=== PATIENT | female | born 1985 | race Two or more races ===

== ENCOUNTER 2019-01-06 11:32 | Emergency (ER) | payer MEDICAID ==
[~2019-01-06] VITALS: Ht 157.5 cm; Wt 104.0 kg
--- NOTE | 2019-01-06 12:46 | NUR ---
WIG COMBER: PT TO ROOM FROM LOBBY
[2019-01-06] MEDS ORDERED: ONDANSETRON ODT 4 MG ONE (13:04)
--- NOTE | 2019-01-06 13:10 | NUR ---
URINE COLLECTED/ORDERED/SENT TO LAB. ODT ZOFRAN GIVEN PER PROTOCOL FOR N/V. PT ALSO WITH C/O COUGH, SORE THROAT. PT DENIES ABD PAIN. CALL LIGHT WITHIN REACH, WARM BLANKET PROVIDED.
[2019-01-06 13:24] LABS: MICROSCOPIC NOT IND
[2019-01-06 13:27] LABS: CULTURE INDICATED? NO
[2019-01-06] MEDS ORDERED: SODIUM CHLORIDE FLUSH 10ML SYR IVF ONE (13:30)
[2019-01-06] MEDS ORDERED: SODIUM CHLORIDE 0.9% 1,000ML IVBOLUS ONE (13:30)
[2019-01-06] MEDS ORDERED: ONDANSETRON ODT 4 MG PO PRN (13:30)
[2019-01-06] MEDS ORDERED: ONDANSETRON 2MG/ML, 2ML IVPush ONE (13:30)
[2019-01-06 13:38] LABS: BASOPHILS # (AUTO) 0.08 x10^3/uL (0-0.1); BASOPHILS % (AUTO) 1 % (0-1); EOSINOPHILS # (AUTO) 0.19 x10^3/uL (0-0.4); EOSINOPHILS % (AUTO) 2 % (1-7); LYMPHOCYTES # (AUTO) 1.98 x10^3/uL (1-3.4); LYMPHOCYTES % (AUTO) 19 % (22-44); MD NO; MEAN CORPUSCULAR HGB CONC 33.2 g/dL (32.4-35.8); MEAN CORPUSCULAR VOLUME 90.5 fL (80-100); MEAN PLATELET VOLUME 8.3 fL (7.4-10.4); MONOCYTES % (AUTO) 6 % (2-9); NEUTROPHILS # (AUTO) 7.76 x10^3/uL (1.8-6.8); NEUTROPHILS % (AUTO) 73 % (42-75); PLATELET COUNT 328 x10^3/uL (130-400); RED BLOOD COUNT 4.61 x10^6/uL (3.82-5.3); RED CELL DISTRIBUTION WIDTH 13.9 % (9.6-15.2)
[2019-01-06 13:51] LABS: CALCIUM 9.1 mg/dL (8.5-10.1); CHLORIDE 107 mmol/L (98-107)
[2019-01-06 14:00] LABS: ALANINE AMINOTRANSFERASE 52 U/L (12-78); ALBUMIN 3.8 g/dL (3.4-5.0); ALKALINE PHOSPHATASE 152 U/L (45-117); ANION GAP 8 mmol/L (5-15); BILIRUBIN,TOTAL 0.6 mg/dL (0.2-1.0); CREATININE 0.61 mg/dL (0.55-1.02); TOTAL PROTEIN 7.8 g/dL (6.4-8.2)
[2019-01-06 15:21] VITALS: BP 121/64
== END 2019-01-06 15:57 | disposition home or self-care (01) ==
LOC: ED 15:27
DX: B34.9 Viral infection, unspecified (principal); R11.2 Nausea with vomiting, unspecified; R19.7 Diarrhea, unspecified
CPT/HCPCS: 36415; 80053; 81003; 83690; 84703; 85025; 93005; 96361; 96374; 99284; J2405; J7030; Q0162

== ENCOUNTER 2019-02-23 17:31 | Emergency (ER) | payer MEDICAID ==
[~2019-02-23] VITALS: Ht 160 cm; Wt 105.7 kg
--- NOTE | 2019-02-23 17:45 | NUR ---
NON TOXIC APPEARING YOUNG LADY PRESENTS TO ED WITH C/O N/V WITH MULTIPLE EPISODES OF LOOSE STOOL STARTING YESTERDAY EVENING. PATIENTS UNABLE TO KEEP FOOD DOWN SINCE YESTERDAY EVENING. PATIENT DOES STAT SOME EPIGATRIC BURNING PAIN, OTHERWISE NO PAIN ON PALPATION. NO RECENT ABX USE. UNSURE IF SHE HAS BEEN AROUND ANYONE THAT HAS BEEN SICK. DENIES CHILLS/FEVER. MILD AMOUNT OF DISTRESS WITH SOME MILD DISCOMFORT NOTED. PATIENT UP TO RESTROOM WITH STEADY GAIT TO ATTEMPT TO OBTAIN URINE SAMPLE.
--- NOTE | 2019-02-23 17:59 | NUR ---
PT REPORT FROM NONA MARQUES. PT CARE TO BE RESUMED.
[2019-02-23 18:22] LABS: BASOPHILS # (AUTO) 0.02 x10^3/uL (0-0.1); BASOPHILS % (AUTO) 0 % (0-1); EOSINOPHILS % (AUTO) 1 % (1-7); LYMPHOCYTES # (AUTO) 0.87 x10^3/uL (1-3.4); LYMPHOCYTES % (AUTO) 11 % (22-44); MD NO; MEAN CORPUSCULAR HEMOGLOBIN 29.8 pg (27.0-34.8); MEAN CORPUSCULAR VOLUME 90.3 fL (80-100); MEAN PLATELET VOLUME 8.1 fL (7.4-10.4); MONOCYTES % (AUTO) 2 % (2-9); NEUTROPHILS # (AUTO) 6.99 x10^3/uL (1.8-6.8); NEUTROPHILS % (AUTO) 86 % (42-75); PLATELET COUNT 314 x10^3/uL (130-400); RED BLOOD COUNT 4.68 x10^6/uL (3.82-5.3); RED CELL DISTRIBUTION WIDTH 13.1 % (9.6-15.2)
[2019-02-23] MEDS ORDERED: ACETAMINOPHEN 500 MG TABLET PO ONE (18:30)
[2019-02-23] MEDS ORDERED: FAMOTIDINE 20 MG/2 ML IVPush ONE (18:30)
[2019-02-23] MEDS ORDERED: SODIUM CHLORIDE 0.9% 1,000ML IVBOLUS ONE (18:30)
[2019-02-23] MEDS ORDERED: ONDANSETRON 2MG/ML, 2ML IVPush ONE (18:30)
[2019-02-23 18:32] LABS: ALANINE AMINOTRANSFERASE 189 U/L (12-78); ALBUMIN 3.5 g/dL (3.4-5.0); ANION GAP 10 mmol/L (5-15); CALCIUM 8.6 mg/dL (8.5-10.1); CHLORIDE 108 mmol/L (98-107); CREATININE 0.61 mg/dL (0.55-1.02)
[2019-02-23 18:34] LABS: ALKALINE PHOSPHATASE 170 U/L (45-117); BILIRUBIN,TOTAL 1.2 mg/dL (0.2-1.0); TOTAL PROTEIN 7.3 g/dL (6.4-8.2)
[2019-02-23] MEDS ORDERED: ONDANSETRON 2MG/ML, 2ML ONE (18:37)
[2019-02-23] MEDS ORDERED: ACETAMINOPHEN 500 MG TABLET ONE (18:37)
[2019-02-23] MEDS ORDERED: FAMOTIDINE 20 MG/2 ML ONE (18:38)
--- NOTE | 2019-02-23 19:12 | NUR ---
PIV INITIATED, SALINE HUNG, PEPCID & ZOFRAN GIVEN PER EMAR. PT'S URINE SPECIMEN IN LABELED CUP ON COUNTER; WILL BE WALKED TO LAB. PT INTERMITTENTLY GRUNTING IN PAIN. PT ASKED "CAN I EAT SOMETHING?" ADVISED PT TO REMAIN NPO UNTIL FURTHER NOTICE; PT VERBALIZED UNDERSTANDING.
[2019-02-23 19:14] LABS: RAPID INFLUENZA A Negative (Negative); RAPID INFLUENZA B Negative (Negative)
[2019-02-23 19:26] LABS: HCG UR SG 1.029 (1.003-1.030)
[2019-02-23 19:27] LABS: MICROSCOPIC INDICATED
--- NOTE | 2019-02-23 19:47 | NUR ---
PT C/O CONTINUING STOMACH BURNING AND GENERALIZED BODY ACHES. DENIES NAUSEA. PO CHALLENGE INITIATED WITH WATER.
[2019-02-23 19:49] LABS: CULTURE INDICATED? NO
[2019-02-23] MEDS ORDERED: MAALOX/HYOSCYAMINE/LIDOCAINE 45 ML BTL PO ONE (20:00)
[2019-02-23] MEDS ORDERED: MAALOX/HYOSCYAMINE/LIDOCAINE 45 ML BTL ONE (20:25)
--- NOTE | 2019-02-23 20:31 | NUR ---
EMPTY WATER CUP ON BS TABLE. GI COCKTAIL GIVEN PER EMAR.
[2019-02-23 20:47] VITALS: BP 121/83
--- NOTE | 2019-02-23 20:58 | NUR ---
REPORTS CONTINUING ABD PAIN
--- NOTE | 2019-02-23 20:58 | NUR ---
PT REQUESTING SOMETHING TO EAT, AND NEED TO VOID.
--- NOTE | 2019-02-23 21:09 | NUR ---
PT AMBULATORY TO & FROM [facility] W/OUT INCIDENT; GAIT STEADY. MILAGROS SEARS PROVIDED. IV DC'D
[2019-02-23] MEDS ORDERED: TRAZ-137 PO (21:13)
[2019-02-23] MEDS ORDERED: CITA40TA5 PO (21:13)
[2019-02-23] MEDS ORDERED: HYDR25CA94 PO (21:13)
[2019-02-23] MEDS ORDERED: RANI150T4 PO (21:13)
== END 2019-02-23 21:30 | disposition home or self-care (01) ==
LOC: ED 19:44
DX: R10.13 Epigastric pain (principal); R11.2 Nausea with vomiting, unspecified; R74.0 Nonspecific elevation of levels of transaminase and lactic acid dehydrogenase [LDH]; M79.10 Myalgia, unspecified site; R53.1 Weakness; F17.200 Nicotine dependence, unspecified, uncomplicated; Z90.49 Acquired absence of other specified parts of digestive tract
CPT/HCPCS: 36415; 80053; 81001; 81025; 83690; 85025; 87400; 96361; 96374; 96375; 99283; J2405; J3490; J7030